=== PATIENT | female | born 1985 | race Caucasian/White ===

== ENCOUNTER 2020-02-17 12:48 | Emergency (ER) | payer OTHER ==
[~2020-02-17] VITALS: Ht 175.3 cm; Wt 78.0 kg
[2020-02-17 12:48] VITALS: BP_SYST 129
--- NOTE | 2020-02-17 12:48 | NUR ---
BROUGHT IN BY [facility] FROM [facility]. PT STATES PAIN TO LEFT THIGH, PLACED IN BED #4 AND TRIAGED. REPORT GIVEN TO MARITZA
--- NOTE | 2020-02-17 12:55 | NUR ---
Pt came to ER after hot soup spilled on L thigh, pt presents with thigh warm and red with blisters. Pt rates pain 4/10, resting in [facility] at this time
[2020-02-17] MEDS ORDERED: MORPHINE 4 MG/ML INJ. SYRINGE IVP ONE (13:00)
[2020-02-17] MEDS ORDERED: SILVER SULFADIAZINE 1%, 25 GM TOPICAL CREAM (SSD) TP ONE (13:00)
[2020-02-17] MEDS ORDERED: DIPH-TET-PERTUS Vaccine 0.5 ML VIAL (ADACEL) I.M. ONE (13:00)
--- NOTE | 2020-02-17 13:10 | NUR ---
ER at bedside examining patient.
[2020-02-17 14:56] VITALS: BP_SYST 129
--- NOTE | 2020-02-17 15:00 | NUR ---
Patient given written and verbal discharge instructions and verbalizes understanding. ER MD discussed with patient the results and treatment provided. Patient in stable condition. ID arm band removed. Patient educated on pain management and to follow up with PMD. Pain Scale 3/10. Opportunity for questions provided and answered. Medication side effect fact sheet provided.
== END 2020-02-17 15:00 | disposition home or self-care (01) ==
LOC: SED 12:48
DX: T24.112A Burn of first degree of left thigh, initial encounter (principal); T31.0 Burns involving less than 10% of body surface; Z88.6 Allergy status to analgesic agent; X19.XXXA Contact with other heat and hot substances, initial encounter; Y93.89 Activity, other specified; Y92.89 Other specified places as the place of occurrence of the external cause; Y99.8 Other external cause status
CPT/HCPCS: 90715; 99283; J2270